=== PATIENT | male | born 1990 | race Caucasian/White ===

== ENCOUNTER 2020-09-26 18:35 | Emergency (ER) | payer OTHER, SELFPAY ==
[2020-09-26 18:41] VITALS: BP 134/89; PULSE 103; RESP 20; TEMP 36.9; O2SAT 100
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
[2020-09-26 20:26] LABS: Add Manual Diff / Slide Review NO; Basophils Absolute Auto 0 /uL (0-100); Basophils Percent Auto 0.3 % (0-2); Eosinophils Absolute Auto 0 /uL (0-450); Eosinophils Percent Auto 0.4 % (2-4); Hematocrit 44.6 % (41-53); Hemoglobin 14.6 g/dL (13.5-17.5); Lymphocytes Absolute Auto 1300 /uL (1100-4500); Lymphocytes Percent Auto 11.2 % (25-40); Mean Corpuscular HGB Conc 32.7 % (30-36); Mean Corpuscular Hemoglobin 29.2 PG (26-34); Mean Corpuscular Volume 89.4 fL (80-100); Monocytes Absolute Auto 700 /uL (0-900); Monocytes Percent Auto 5.9 % (3-14); Neutrophils Absolute Auto 9500 /uL (1500-7000); Neutrophils Percent Auto 82.2 % (50-75); Platelet Count 271 X10^3/uL (150-400); Red Blood Cell Count 4.99 X10^6/uL (4.5-5.9); Red Cell Distribution Width 13.8 % (11.6-14.8); White Blood Cell Count 11.6 X10^3/uL (4.5-11.0)
[2020-09-26] MEDS: KETOROLAC 30 MG/ML VIAL 15 MG IV (20:27)
[2020-09-26 20:43] LABS: Creatine Kinase 211 U/L (55-170)
[2020-09-26 20:44] LABS: Alanine Aminotransferase 21 IU/L (<50); Albumin 4.6 g/dL (3.5-5.0); Albumin Globulin Ratio 1.5 (1.0-2.8); Alkaline Phosphatase 53 U/L (38-126); Aspartate Aminotransferase 36 IU/L (17-59); BUN Creatinine Ratio 22.1 (6-22); Bilirubin Total 0.5 mg/dL (0.2-1.3); Blood Urea Nitrogen 19 mg/dL (9-20); Calcium 9.5 mg/dL (8.4-10.2); Carbon Dioxide 30 mmol/L (22-32); Chloride 102 mmol/L (98-107); Estimated Glomerular Filt Rate > 60.0 mL/min (>60); Globulin 3.1 g/dL (1.7-4.1); Glucose 98 mg/dL (70-100); HEMOLYSIS < 15 (0-50); Lipase 102 U/L (23-300); Potassium 4.4 mmol/L (3.4-5.1); Sodium 139 mmol/L (137-145); Total Protein 7.7 g/dL (6.3-8.2)
[2020-09-26 20:54] LABS: Troponin I < 0.012 ng/mL (0.01-0.034)
[2020-09-26 20:58] LABS: CKMB % Relative Index 0.6 % (1.5-5.0)
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
[2020-09-26] MEDS: CYCLOBENZAPRINE 10 MG TABLET PO (22:13)
[2020-09-26] MEDS: ACETAMINOPHEN 325 MG TABLET 975 MG PO (22:13)
[2020-09-26] MEDS: CYCLOBENZAPRINE 10 MG PREPACK 1 BOTTLE MISC (22:13)
[2020-09-26 22:21] VITALS: BP 132/76; PULSE 94; RESP 22; O2SAT 100
== END 2020-09-26 22:22 | disposition home or self-care (01) ==
PROVIDERS: Emergency Provider Emergency Medicine
DX: S16.1XXA Strain of muscle, fascia and tendon at neck level, initial encounter (principal); S20.219A Contusion of unspecified front wall of thorax, initial encounter; V89.2XXA Person injured in unspecified motor-vehicle accident, traffic, initial encounter
CPT/HCPCS: 71260; 72125; 80053; 82550; 82553; 83690; 84484; 85025; 96374; 99284; 99285; J1885; Q9967

== ENCOUNTER 2020-10-01 07:36 | Emergency (ER) | payer OTHER, SELFPAY ==
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
[2020-10-01 07:50] VITALS: BP 131/88; PULSE 90; RESP 18; TEMP 36.9; O2SAT 100; BMI 19.8
== END 2020-10-01 08:08 | disposition home or self-care (01) ==
PROVIDERS: Emergency Provider Emergency Medicine
DX: S16.1XXD Strain of muscle, fascia and tendon at neck level, subsequent encounter (principal); V89.2XXD Person injured in unspecified motor-vehicle accident, traffic, subsequent encounter
CPT/HCPCS: 99281